=== PATIENT | female | born 1945 | race Caucasian/White ===

== ENCOUNTER 2021-01-09 15:59 | Emergency (ER) | payer MEDICARE ==
[~2021-01-09] VITALS: Ht 154.9 cm; Wt 79.8 kg
[2021-01-09] MEDS ORDERED: CYMBALTA30 MG PO (16:27)
[2021-01-09] MEDS ORDERED: NP THYROID90 MG PO (16:28)
[2021-01-09] MEDS ORDERED: LIPITOR20 MG PO (16:29)
[2021-01-09] MEDS ORDERED: KELP150 MC1 PO (16:30)
[2021-01-09] MEDS ORDERED: MELATONIN1 MG PO (16:31)
[2021-01-09] MEDS ORDERED: PRAMIPEXOLE0.125 MG PO (16:52)
[2021-01-09] MEDS ORDERED: ASPIRIN EC325 MG PO (16:53)
--- NOTE | 2021-01-10 15:09 | EKG ---
[facility] [address] [facility] [place], [place] [address] Signed Sinus bradycardia Left bundle branch block Abnormal ECG No previous ECGs available Confirmed by MANNY ARAUJO DO ([id number]) on 01/10/2021 3:08:43 PM Electronically Signed By: MANNY ARAUJO DO 01/10/21 1509 PATIENT NAME: KATHY SMITH Electrocardiogram DATE OF : 45 PHYSICIAN: MANNY ARAUJO DO REPORT #: [id number] REPORT IS CONFIDENTIAL AND NOT TO BE RELEASED WITHOUT AUTHORIZATION
== END 2021-01-09 20:41 | disposition home or self-care (01) ==
LOC: ED 15:59
DX: E87.1 Hypo-osmolality and hyponatremia (principal); R51.9 Headache, unspecified; R53.1 Weakness; R11.0 Nausea; R41.89 Other symptoms and signs involving cognitive functions and awareness; Z20.822 Contact with and (suspected) exposure to COVID-19; E11.9 Type 2 diabetes mellitus without complications; E03.9 Hypothyroidism, unspecified; Z79.899 Other long term (current) drug therapy; Z79.82 Long term (current) use of aspirin
CPT/HCPCS: 71045; 80053; 81001; 83690; 83735; 84443; 84484; 85007; 85025; 93005; 93010; 99285-25; C9803; J7121; U0003

== ENCOUNTER 2022-03-21 10:45 | Day surgery (SDC) | payer MEDICARE ==
[~2022-03-21] VITALS: Ht 154.9 cm; Wt 77.3 kg
[~2022-03-21 10:45] MED LIST: ASPIRIN EC325 MG PO; B12 ACTIVE1000 MCG PO; CARBIDOPA-LEVO1 EAC1 PO; CELEBREX100 MG PO; CYMBALTA30 MG PO; ELDERBERRY IMM1 EACH PO; KELP150 MC1 PO; LIPITOR20 MG PO; MAGNESIUM200 MG PO; MELATONIN1 MG PO; NOVAFERRUM125 MG/51 PO; NP THYROID90 MG PO; OSTERA TABLET1 EACH PO; PRAMIPEXOLE0.125 MG PO; VIT C-ROSE HIP500 MG PO; [UNRECOGNIZED DRUG - OTHER] PO
[2022-03-21] MEDS ORDERED: PROAIR HFA8.5 GM INH (11:03)
--- NOTE | 2022-03-21 12:19 | NUR ---
03/21/22 1219 Rakel Freed 1209 PATIENT SLEEPING. AWAKENS WITH VERBAL STIMULI. RESP EVEN AND UNLABORED, NC AT 4 LITERS. DENIES PAIN OR NAUSEA. 1215 PATIENT REPOSITIONS SELF TO BACK. DENIES PAIN OR NAUSEA. RESP EVEN AND UNLABORED, OXYGEN OFF.
--- NOTE | 2022-04-04 09:52 | PATH ---
[facility] [address] [place], [place] [address] Signed THIS IS AN ADDENDUM REPORT SPECIMEN(S): A BONE MARROW - CORE SPECIMEN(S): B BONE MARROW - ASPIRATION CLINICAL HISTORY: 76-year-old woman with pancytopenia. See attached. D72.819 (decreased white blood cell count, unspecified) DIAGNOSIS SUMMARY: Peripheral blood - Pancytopenia with no abnormal RBC or WBC cells. - No circulating blasts are identified. Bone marrow biopsy and aspiration: - Mildly hypercellular marrow, 40%, with 1% blasts. - Trilineage hematopoiesis with erythroid hyperplasia with no significant dyspoiesis. - No malignancy identified by morphology. - 0.1% kappa-restricted B-cells are identified by flow cytometry. - See Diagnostic Comment. DIAGNOSTIC COMMENT: The marrow is mildly hypercellular with mild erythroid hyperplasia with no significant dyspoiesis. Myelodysplasia is not favored, but correlation with pending chromosome analysis and a FISH panel for MDS is required to exclude an occult myelodysplasia. Other possibilities would include viral infection, drug effect, autoimmune conditions, or a low-grade hemolytic anemia. Exclusion of PNH or splenomegaly may be helpful. If clinically desired, the cell block could be sent for NGS-myelodysplasia analysis. Please contact pathology if this study is desired. By flow cytometry, a small population of kappa-restricted B-cells is detected (0.1% of all gated cells). No overt lymphoproliferative disorder is identified by morphology or immunohistochemistry analysis. A monoclonal B-cell lymphocytosis is favored. JLP:C2NR HISTORICAL SUMMARY: 76-year-old female with no prior hematology history in the [facility] data base. She presents with unexplained pancytopenia. PATIENT NAME: KATHY SMITH PATHOLOGY DATE OF : 45 REPORT #: [id number] PHYSICIAN: CORRY PATHOLOGY PCP: KARLA CHILEL MD REPORT IS CONFIDENTIAL AND NOT TO BE RELEASED WITHOUT AUTHORIZATION [facility] [address] [place], [place] [address] Signed PERIPHERAL BLOOD: HEMOGRAM (03/21/2022): WBC 1.4 K/ul, RBC 3.67 M/ul, HGB 11.7 g/dl, HCT 34.5%, MCV 94.0 fl, MCH 32.0 pg, MCHC 34.1 g/dl, RDW 13.9%, PLT 128 K/ul. AUTOMATED DIFFERENTIAL COUNT: Neutrophils 51.3%, lymphocytes 32.3%, monocytes 13.5%, eosinophils 2.0%, basophils 0.9%. The red blood cells are normocytic and normochromic with minimal anisopoikilocytosis. The neutrophils are unremarkable. Lymphocytes are composed of small mature appearing forms. Platelets are mildly decreased in number with no platelet clumping or RBC microangiopathic effect identified. No blasts are identified. BONE MARROW: ASPIRATE SMEARS/TOUCH IMPRINT: The aspirate smears are adequate for evaluation. Erythroid precursors are increased in number but show adequate maturation with essentially normal morphology. The myeloid precursors show full maturation with unremarkable morphology. There is no increase in blasts. Megakaryocytes are identified with a normal morphology. BONE MARROW DIFFERENTIAL COUNT (300 cells): Blasts 1%, promyelocytes 1%, myelocytes 5%, metamyelocytes/bands/segs 24%, erythroid precursors 51%, lymphocytes 13%, monocytes 3%, eosinophils 1%, plasma cells 1%. M:E ratio: Inverted at 0.6:1 BONE MARROW CORE BIOPSY/ASPIRATE CLOT/CELL BLOCK: The aspirate clot section and the core biopsy are adequate for evaluation. The core biopsy demonstrates unremarkable trabecular bone. The cellularity is mildly increased for age, estimated at 40%. The erythroid precursors are within normal limits with essentially unremarkable maturation. The myeloid precursors are unremarkable with no significant dyspoiesis. Blasts are not increased. Megakaryocytes appear normal in number and in morphology. No granulomas, atypical lymphoid aggregates or foreign malignant cells are detected. SPECIAL STAINS (with adequate controls): - iron (aspirate smear): Increased marrow iron stores by Prussian Blue stain. No ring sideroblasts are identified. - iron (cell block): Appears normal by Prussian Blue stain. - PAS (block A1): Normal number and morphology of megakaryocytes. IMMUNOHISTOCHEMISTRY STAINS (performed on block A1 with adequate controls). - PAX 5: 1%, no atypical aggregates. - CD3: 5%, no atypical aggregates - CD71: 40% - CD34: 1% PATIENT NAME: KATHY SMITH PATHOLOGY DATE OF : 45 REPORT #: [id number] PHYSICIAN: CORRY PATHOLOGY PCP: KARLA CHILEL MD REPORT IS CONFIDENTIAL AND NOT TO BE RELEASED WITHOUT AUTHORIZATION [facility] [address] [place] [address] Signed FLOW CYTOMETRY: Bone marrow, flow cytometry: - Minute population (0.1% of all gated cells) of kappa restricted B-cells. - No diagnostic abnormalities are identified. - See Comment. COMMENT: 0.1% of all analyzed cells are kappa restricted B-cells. These B-cells are positive for CD19, CD20 (dim expression), CD5, and CD200. There is no significant expression of CD10 or CD23. This may represent a monoclonal B-cell lymphocytosis. Correlation with bone marrow findings is required. The T-cells are unremarkable with no loss of morel-T markers. The blasts are not increased. FLOW CYTOMETRY ANALYSIS: FLOW DIFFERENTIAL (% Total CD45 vs. SSC gating): Myeloid 66%; Lymphoid 9%; Monocyte 3%; Dim CD45/Blast: 1.8%. Cell Count: 3.8 x 10*3/uL. POPULATION ANALYSIS: BLASTS: Analysis of the dim CD45 gate demonstrates 1.8% myeloblasts by CD34/CD117 and 1.0% hematogones. LYMPHOID CELLS: The lymphocyte gate comprises 9% of total events and includes 80% T-cells with a CD4:CD8 ratio of 1.0:1 and normal morel T-cell antigen expression. 4% of lymphocytes are B-cells. A minute kappa-restricted B-cell subset is detected (1% of lymphocytes, 0.1% of total events) expressing CD45 MOD, CD19 MOD, CD20 DIM, CD5 (variable), CD38 DIM (partial, 40% of CD19+CD5+ B-cells), and KAPPA (variable) while negative for CD10 and CD23. Due to the absence of CD23 expression, select additional antibodies are run to further characterize the Bcells. Expression of CD200 DIM is noted. The remainders are NK-cells. MYELOID CELLS: The myeloid population comprises 66% of the total events. No aberrant immunophenotypic expression is detected. MONOCYTES: The monocyte population comprises 3% of the total events. Monocytes are not increased. No aberrant immunophenotypic expression is detected. PLASMA CELLS: 0.9% plasma cells are detected in the screening gate neg-dimCD45/CD38. Plasma cells are CD45 dim and positive for CD19. Initial Antibodies Used: KAPPA, LAMBDA, CD20, CD10, CD19, CD23, CD38, CD16, CD56, CD8, CD5, CD2, CD4, CD7, CD3, CD14, CD33, CD13, HLADR, CD34, CD117, CD15, CD45. Additional Antibodies (necessary for further classification of B-lymphocytes): CD200 PATIENT NAME: KATHY SMITH PATHOLOGY DATE OF : 45 REPORT #: [id number] PHYSICIAN: CORRY DEAN PCP: KARLA CHILEL MD REPORT IS CONFIDENTIAL AND NOT TO BE RELEASED WITHOUT AUTHORIZATION [facility] [address] [place], [place] [address] Signed Total Antibodies Used: 24 JNB FINAL DIAGNOSIS PERFORMED BY: Porter Alfaro MD, Mar 23 2022 1:57PM CYTOGENETICS: Chromosome analysis is pending, and the result will be reported in an addendum. FISH ANALYSIS: A FISH panel for MDS is pending, and the result will be reported in an addendum. GROSS DESCRIPTION: Two specimens are received in two containers. A. The specimen, labeled and designated "Kurt, bone marrow core biopsy," is received in formalin and consists of one samuel, cylindrical core of bone that is 1.6 cm long and 0.2 cm in diameter. After decalcification in Immunocal, the specimen is entirely submitted in (A1). B. The specimen, labeled and designated "Kurt, bone marrow clot," is received in formalin and consists of a 2.2 x 1.5 x 0.3 cm aggregate of red-brown clot material. Entirely submitted in (B1). JS (under the direct supervision of a pathologist) The Gross Description was prepared using a voice recognition system. The report was reviewed for accuracy; however, sound-alike word errors, addition and/or deletions may occur. If there is any question about this report, please contact Client Services. ADDITIONAL NOTES: Immunohistochemical and/or in situ hybridization studies were performed on this case with the appropriate positive controls that react as expected. This test was developed and its performance characteristics determined by [facility]. It has not been cleared or approved by the U.S. Food and Drug Administration. The FDA has determined that such clearance or approval is not necessary. This test is used for clinical purposes. It should not be regarded as investigational or for research. [facility] is certified under the Clinical Laboratory Improvement Amendments of 1988 (CLIA) as qualified to perform high complexity clinical laboratory testing. This assay has not been validated for specimens that have been decalcified. In this case, certain antibodies were performed by both immunohistochemistry and flow cytometry analysis because flow cytometry analysis did not fully PATIENT NAME: KATHY SMITH PATHOLOGY DATE OF : 45 REPORT #: [id number] PHYSICIAN: CORRY PATHOLOGY PCP: KARLA CHILEL MD REPORT IS CONFIDENTIAL AND NOT TO BE RELEASED WITHOUT AUTHORIZATION [facility] [address] [facility] [place], [place] [address] Signed explain all the light microscopic findings. Immunohistochemistry aided in the analysis. Both methods are deemed medically necessary in this case. This test was developed and its performance characteristics determined by [facility]. It has not been cleared or approved by the US Food and Drug Administration. The FDA does not require this test to go through premarket FDA review. This test is used for clinical purposes. It should not be regarded as investigational or for research. This laboratory is certified under the Clinical Laboratory Improvement Amendments (CLIA) as qualified to perform high complexity clinical laboratory testing. PERFORMING LABORATORY: The technical preparation was performed by [facility], [address] [place] [address] (CLIA#: [id number]). Professional interpretation was performed at [facility], [address] [place] [address]. Technical component was performed by [facility], [address] [place] [address] (CLIA# [id number]). Immunohistochemistry was performed by [facility], [address] [place] [address] (CLIA#: [id number]). Professional interpretation was performed by [facility] - [facility], [address] [place] [id number] (CLIA#: [id number]). IMAGES: A: [id number] A: [id number] SPECIMEN SOURCE: A. FISH Analysis, MDS FISH, BM ASP CLINICAL HISTORY: 76-year-old woman with pancytopenia. D72.819 (decreased white blood cell count, unspecified) FISH (fluorescence in situ hybridization) RESULT: Not Detected INTERPRETATION: 5q deletion/monosomy 5: Not detected. 7q deletion/monosomy 7: Not detected. Trisomy 8: Not detected. 20q deletion: Not detected. PATIENT NAME: KATHY SMITH PATHOLOGY DATE OF : 45 REPORT #: [id number] PHYSICIAN: CORRY PATHOLOGY PCP: KARLA CHILEL MD REPORT IS CONFIDENTIAL AND NOT TO BE RELEASED WITHOUT AUTHORIZATION [facility] [address] [facility] [place] [address] Signed KMT2A (MLL) rearrangement: Not detected. Fluorescence in situ hybridization (FISH) analysis was performed using a specific set of probes for myelodysplastic syndrome. Counts for all probe signals were within the normal reference range. This finding represents a NORMAL result. FISH should be interpreted within the context of a full cytogenetic analysis and hematologic evaluation. ISCN: Probe Set Detail: EGR1/B5O986: nuc carson 5p15.31(X0P502w1), 5q31(EGR1x2)[200] L7B560/CEP7: nuc carson 7q31(B7L761x3),7q11.2q11.21(CEP7x2)[200] CEP8: nuc carson 8q11.1q11.21(CEP8x2)[200] L82H512: nuc carson 20q12(F52Z432x1)[200] KMT2A (MLL): nuc carson 11q23(5'KMT2A,3'KMT2A)x2(5'KMT2A con 3'BBD0Vb3)[200] References: Taylor Ellsworth (2013) Hematology Am Soc Hematol Educ Program 2013:504-10. PMID [id number] Vikki Kelley and Lela Carrizales (2011) Hematology 16(3):131-8. PMID: [id number] FISH Analysis Summary: Nuclei Scored: 200 Scoring Method: Manual; CPT Code 50407 Number of Probe units: 4 Multiplex Cells analyzed: Interphase Probe sets: Chrom 8: KOREY 8, Chrom 20: K98I783, Chrom 5: EGR1, Chrom 5: W6Q595, Chrom 7: CEN7, Chrom 7: S7O3387, Chrom 11: KMT2A (MLL) 3', Chrom 11: KMT2A (MLL) 5 ADDITIONAL NOTES: This test was developed and its performance characteristics determined by [facility], [employer]. It has not been cleared or approved by the US Food and Drug Administration. The [employer] DNA probe vendor for this study was [employer]. PERFORMING LABORATORY: The technical component of the FISH testing [place] [address] (CLIA#: [id number]). Professional [facility] [place] [phone] (CLIA#: [id number]). FINAL DIAGNOSIS PERFORMED BY: Joyce Atkins MD, Pathologist Mar 30 2022 1:44PM ADDENDUM NOTE The FISH panel for MDS is normal. Chromosome analysis demonstrated 2 of 18 PATIENT NAME: KATHY SMITH PATHOLOGY DATE OF : 45 REPORT #: [id number] PHYSICIAN: CORRY DEAN PCP: KARLA CHILEL MD REPORT IS CONFIDENTIAL AND NOT TO BE RELEASED WITHOUT AUTHORIZATION [address] [address] Signed analyzed cells with trisomy 15. Trisomy 15 has been observed in low-grade myelodysplastic syndrome, usually refractory anemia. As a marker for myelodysplasia, trisomy 15 is associated with minimal morphologic evidence for myelodysplasia, where subtle dyserythropoietic changes may be the only finding. However, the association of isolated trisomy 15 with hematologic disease is not definitive. Testing for NGS MDS panel ([employer] CMML/MDS, [facility] lab) is suggested for further evaluation of low grade MDS. This can be done from block B of this bone marrow specimen. Please contact pathology if this test is desired. A diagnostic alert is initiated by Dr Dominic ALMAZAN 04/04/2022 REASON FOR ADDENDUM: To add results of additional testing. Bone marrow, chromosome analysis: Karyotype: 47,XX,+15[2]/46,XX[18] Interpretation: ABNORMAL FEMALE KARYOTYPE Cytogenetic analysis shows an abnormal female karyotype. Two cells show a trisomy 15 and eighteen cells show a normal karyotype. Trisomy 15 has been observed in low-grade myelodysplastic syndrome, usually refractory anemia. As a marker for myelodysplasia, trisomy 15 is associated with minimal morphologic evidence for myelodysplasia, where subtle dyserythropoietic changes may be the only finding. However, the association of isolated trisomy 15 with hematologic disease is not definitive. Recommendation: These results should be interpreted in conjunction with clinical and pathologic findings. Monitoring by cytogenetic and molecular studies is recommended. Comments: Standard cytogenetic analysis may not detect subtle submicroscopic rearrangements and may not include metaphases from abnormal cell populations with low mitotic rates or present in low levels. Test Detail: Metaphases Counted: 20 Metaphases Analyzed: 20 Metaphases Karyotyped: 2 Culture Type: 24EB, 48EB PATIENT NAME: KURTKATHY PEACOCK PATHOLOGY DATE OF : 45 REPORT #: [id number] PHYSICIAN: CORRY PATHOLOGY PCP: KARLA CHILEL MD REPORT IS CONFIDENTIAL AND NOT TO BE RELEASED WITHOUT AUTHORIZATION [facility] [address] [place], [place] [address] Signed Banding Technique: GPG Banding Resolution: 400 CPT Codes: 56651, 11884*, 85970 *Professional interpretation service generally billed directly to carriers by [facility]. The Accessioning Component, Technical Component Processing and Professional Component of this test was completed at [facility] [address] / [address] / [phone] / CLIA #[id number] / Park Interpretive Ranger(s): Paul Vidal M.D. The Technical Component Analysis of this test was completed at [facility] [address], [facility] [address], [place] / [address] / [phone] / CLIA #[id number] / Park Interpretive Ranger(s): Marti Bourgeois M.D. Accession / CaseNo: [id number] / [id number] The performance characteristics of this test have been determined by the performing laboratory. This test has not been approved by the FDA. The FDA has determined such clearance or approval is not necessary. This laboratory is CLIA certified to perform high complexity clinical testing. Images that may be included within this report are senior patient account representative of the patient but not all testing in its entirety and should not be used to render a result. The CPT codes provided with our test descriptions are based on AMA guidelines and are for informational purposes only. Correct CPT coding is the sole responsibility of the billing republican. Please direct any questions regarding coding to the payer being billed. Diagnostician: Porter Alfaro MD Pathologist Electronically Signed 04/04/2022 Copies: ~ PATIENT NAME: SHLOMO SMITHVIKKI GAVIRIA PATHOLOGY DATE OF : 45 REPORT #: [id number] PHYSICIAN: CORRY PATHOLOGY PCP: KARLA CHILEL MD REPORT IS CONFIDENTIAL AND NOT TO BE RELEASED WITHOUT AUTHORIZATION
== END 2022-03-21 13:15 | disposition home or self-care (01) ==
LOC: OPS 10:45 → DS 10:45 → OPS 12:00
PROVIDERS: ATTEND Specialist
PROC: 079T3ZX Drainage of Bone Marrow, Percutaneous Approach, Diagnostic (ICD-10-PCS; principal; 2022-03-21 12:00)
DX: D61.818 Other pancytopenia (principal); I10 Essential (primary) hypertension; K21.9 Gastro-esophageal reflux disease without esophagitis; E03.9 Hypothyroidism, unspecified; E11.9 Type 2 diabetes mellitus without complications; M79.7 Fibromyalgia; I69.359 Hemiplegia and hemiparesis following cerebral infarction affecting unspecified side; G25.81 Restless legs syndrome; Z79.899 Other long term (current) drug therapy
CPT/HCPCS: 01112; 36415; 80053; 80074; 83615; 85025; 86038; 86431; J2704; J7121

== ENCOUNTER 2022-08-17 11:09 | Emergency (ER) | payer MEDICARE ==
[~2022-08-17] VITALS: Ht 154.9 cm; Wt 77.1 kg
[~2022-08-17 11:09] MED LIST changes: +PROAIR HFA8.5 GM INH
--- OUTSIDE RECORDS SUMMARY | 2022-08-17 11:14 | XMS ---
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 Kaylee has no Care Guidelines for this patient. Kae VISIT COUNT (12 MO.) 2 MARY Velazquez TOTAL 2 NOTE: Visits indicate total known visits. 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 Diabetes DIAGNOSES: - Distal Femur Fracture. Diabetes [email or web address]
[2022-08-17] MEDS ORDERED: CELEBREX100 MG PO (12:41)
[2022-08-17 12:49] VITALS: BP 126/64
== END 2022-08-17 12:51 | disposition home or self-care (01) ==
LOC: ED 11:09
DX: S80.12XA Contusion of left lower leg, initial encounter (principal); E11.9 Type 2 diabetes mellitus without complications; E03.9 Hypothyroidism, unspecified; X58.XXXA Exposure to other specified factors, initial encounter; Z96.653 Presence of artificial knee joint, bilateral; Z79.899 Other long term (current) drug therapy; Z86.73 Personal history of transient ischemic attack (TIA), and cerebral infarction without residual deficits; Z79.82 Long term (current) use of aspirin
CPT/HCPCS: 36415; 73560; 85025; 85060; 93971; 99284-25

== ENCOUNTER 2024-04-26 02:55 | Inpatient (IN) | payer MEDICARE ==
[2024-04-26] VITALS (31 sets, daily range): BP systolic 84–129; BP diastolic 56–109
[~2024-04-26] VITALS: Ht 154.9 cm; Wt 76.3 kg
[~2024-04-26 02:55] MED LIST changes: +COQMAX UBIQUIN100 MG PO; -ELDERBERRY IMM1 EACH PO; +ELDERBERRY350 MG PO; -MELATONIN1 MG PO; +MELATONIN5 M2 PO; +MULTI VITAMIN1 EACH PO; +PRILOSEC OTC20 MG PO; +ZINC50 MG PO
[2024-04-26 03:17] LABS: BASOPHILS 0.8 % (0-2); EOSINOPHILS 1.2 % (0-6); HEMATOCRIT 38.9 % (35.0-50.0); HEMOGLOBIN 13.2 g/dL (12.0-18.0); LYMPHOCYTES 16.9 % (24-44); MCH 32.3 (27-36); MONOCYTES 11.7 % (0-12); NEUTROPHILS 69.4 % (39-80); PLATELET COUNT 167 K/uL (140-440); RDW 14.3 (10.5-15.0)
[2024-04-26 03:28] LABS: INR 1.08 (0.80-1.30); PROTIME 13.9 Sec (11.2-14.2)
[2024-04-26] MEDS ORDERED: ondansetron HCL 4 MG/2 ML VIAL IV ONE (03:30)
[2024-04-26 03:33] LABS: ALBUMIN 4.3 g/dL (3.4-5.0); ALBUMIN/GLOBULIN RATIO 1.26 (1.1-2.4); ANION GAP 11.9 (7-21); BILIRUBIN, TOTAL 1.6 ng/dL (0.2-1.0); BUN/CREATININE RATIO 36.66 (6.0-28.6); CALCIUM 9.3 mg/dL (8.5-10.1); CREATININE, SERUM 0.6 mg/dL (0.55-1.02); POTASSIUM 3.9 mmol/L (3.5-5.1); PROTEIN, TOTAL 7.7 g/dL (6.4-8.2)
[2024-04-26 03:41] LABS: LACTIC ACID, BLOOD 1.5 mmol/L (0.4-2.0)
[2024-04-26] MEDS ORDERED: dilTIAZem HCL 25 MG/5 ML VIAL IV ONE ×3 (03:45→08:15)
[2024-04-26 04:00] LABS: CORONAVIRUS COVID-19 AG NEGATIVE (NEGATIVE); INFLUENZA A AG NEGATIVE (NEGATIVE); INFLUENZA B AG NEGATIVE (NEGATIVE)
[2024-04-26] MEDS ORDERED: CEFTRIAXONE/SODIUM CHLORIDE 1 GM/100 ML PIGGYBACK IV ONE (04:15)
[2024-04-26] MEDS ORDERED: AZITHROMYCIN 250 MG TAB PO ONE (04:15)
[2024-04-26] MEDS ORDERED: FUROSEMIDE 40 MG/4 ML VIAL IV ONE (04:30)
[2024-04-26 05:41] LABS: BILIRUBIN, URINE NEGATIVE (negative); BLOOD/HGB, URINE NEGATIVE (Negative); KETONE, URINE NEGATIVE (Negative); LEUK ESTERASE, URINE NEGATIVE (negative); NITRITE, URINE POSITIVE (negative)
[2024-04-26 06:07] LABS: CRYSTALS, URINE NONE SEEN (0-1+); EPITHELIAL CELLS, URINE SQUAMOUS 1+ /lpf (0-1+)
[2024-04-26 06:08] LABS: BACTERIA, URINE RARE /hpf (negative); CASTS, URINE NONE SEEN \\lpf; COLLECTION TYPE, URINE CLEAN CATCH; REFLEX CULTURE, URINE No (No)
[2024-04-26] MEDS ORDERED: ondansetron HCL 4 MG/2 ML VIAL IV PRN ×2 (07:15→09:30)
[2024-04-26] MEDS ORDERED: ACETAMINOPHEN 325 MG TAB PO PRN ×2 (07:15→09:30)
[2024-04-26] MEDS ORDERED: ALBUTEROL SULFATE 0.083% 3 ML VIAL INH PRN (07:45)
[2024-04-26] MEDS ORDERED: PROCHLORPERAZINE EDISYLATE 10 MG/2 ML VIAL IV PRN (08:30)
[2024-04-26] MEDS ORDERED: DILTIAZEM HCl/D5W 125 ML IV SCH (08:30)
[2024-04-26] MEDS ORDERED: NYSTATIN CREAM 30 GM TUBE TOP SCH (09:00)
[2024-04-26] MEDS ORDERED: PANTOPRAZOLE SODIUM 40 MG TABEC PO SCH (09:00)
[2024-04-26] MEDS ORDERED: MICONAZOLE NITRATE 1 EA BTL TOP SCH (09:00)
[2024-04-26] MEDS ORDERED: GLUCAGON,HUMAN RECOMBINANT 1 MG/ML VIAL SUB-Q PRN (09:30)
[2024-04-26] MEDS ORDERED: DEXTROSE 50% 50 ML SYR IV PRN ×2 (09:30)
[2024-04-26] MEDS ORDERED: IBLOOD GLUCOSE TEST STRIP 1 EA TEST XX PRN (09:30)
[2024-04-26] MEDS ORDERED: DEXTROSE 5% 1,000 ML IV PRN (09:30)
[2024-04-26 10:25] LABS: ANION GAP 14.1 (7-21); CALCIUM 9.2 mg/dL (8.5-10.1); CREATININE, SERUM 0.7 mg/dL (0.55-1.02); POTASSIUM 4.1 mmol/L (3.5-5.1)
[2024-04-26] MEDS ORDERED: CELECOXIB100 MG PO (11:17)
[2024-04-26] MEDS ORDERED: INSULIN LISPRO 100 UNIT/ML ML SUB-Q SCH (12:00)
[2024-04-26] MEDS ORDERED: IBLOOD GLUCOSE TEST STRIP 1 EA TEST VI SCH (12:00)
[2024-04-26] MEDS ORDERED: PHARMACY RENAL DOSE ADJUSTMENT 1 DOSE MISC PO SCH (12:00)
[2024-04-26] MEDS ORDERED: VITAMIN D350 MC5 PO (12:47)
[2024-04-26] MEDS ORDERED: VITAMIN B121000 MCG PO (12:48)
[2024-04-26] MEDS ORDERED: CILOSTAZOL100 MG PO (12:48)
[2024-04-26] MEDS ORDERED: FUROSEMIDE 40 MG/4 ML VIAL IV SCH (13:00)
[2024-04-26 15:10] LABS: BUN/CREATININE RATIO 31.81 (6.0-28.6); CREATININE, SERUM 0.66 mg/dL (0.55-1.02)
[2024-04-26 18:33] LABS: ANION GAP 7.9 (7-21); BUN/CREATININE RATIO 27.77 (6.0-28.6); CALCIUM 8.8 mg/dL (8.5-10.1); CREATININE, SERUM 0.72 mg/dL (0.55-1.02); POTASSIUM 3.9 mmol/L (3.5-5.1)
[2024-04-26] MEDS ORDERED: cilostazoL 100 MG TAB PO SCH (21:00)
[2024-04-26] MEDS ORDERED: APIXABAN 5 MG TAB PO SCH (21:00)
[2024-04-26] MEDS ORDERED: LEVODOPA/CARBIDOPA 25/100 1 EA TAB PO SCH (21:00)
[2024-04-26 22:17] LABS: ANION GAP 4.9 (7-21); BUN/CREATININE RATIO 29.57 (6.0-28.6); CALCIUM 8.8 mg/dL (8.5-10.1); CREATININE, SERUM 0.71 mg/dL (0.55-1.02); POTASSIUM 3.9 mmol/L (3.5-5.1)
[2024-04-27] VITALS (30 sets, daily range): BP systolic 83–152; BP diastolic 55–127
[2024-04-27 05:50] LABS: HEMATOCRIT 32.4 % (35.0-50.0); HEMOGLOBIN 11.1 g/dL (12.0-18.0); MCH 32.5 (27-36); MCHC 34.4 g/dl (30-36); MCV 94.5 fl (81-99); MONOCYTES 13.7 % (0-12); NEUTROPHILS 50.3 % (39-80); PLATELET COUNT 132 K/uL (140-440); RBC 3.42 M/ul (4.3-5.7); RDW 14.3 (10.5-15.0)
[2024-04-27 06:11] LABS: ALBUMIN 3.3 g/dL (3.4-5.0); ALBUMIN/GLOBULIN RATIO 1.27 (1.1-2.4); BILIRUBIN, TOTAL 0.8 ng/dL (0.2-1.0); BUN/CREATININE RATIO 30.3 (6.0-28.6); CALCIUM 8.9 mg/dL (8.5-10.1); CREATININE, SERUM 0.66 mg/dL (0.55-1.02); MAGNESIUM 1.6 mg/dL (1.8-2.4); PHOSPHORUS, INORGANIC 3.8 mg/dL (2.5-4.9); PROTEIN, TOTAL 5.9 g/dL (6.4-8.2)
[2024-04-27] MEDS ORDERED: THYROID PORK 30 MG PO SCH (09:00)
[2024-04-27] MEDS ORDERED: MAGNESIUM SULFATE 2 GM/50 ML BAG IV SCH (09:00)
[2024-04-27] MEDS ORDERED: CELECOXIB 100 MG CAP PO SCH (11:05)
[2024-04-27] MEDS ORDERED: dilTIAZem HCL 180 MG CAPCR PO SCH (11:06)
--- NOTE | 2024-04-27 23:00 | EKG ---
[facility] [address] [facility] [place] [address] Signed Atrial fibrillation with rapid ventricular response Left bundle branch block Abnormal ECG When compared with ECG of 30-NOV-2022 06:08, Atrial fibrillation has replaced Sinus rhythm Vent. rate has increased BY 69 BPM Confirmed by Kerry Jack MD () on 04/27/2024 11:00:24 PM Electronically Signed By: KERRY JACK MD 04/27/24 2300 PATIENT NAME: KATHY SMITH Electrocardiogram DATE OF : 45 PHYSICIAN: KERRY JACK MD REPORT #: [id number] REPORT IS CONFIDENTIAL AND NOT TO BE RELEASED WITHOUT AUTHORIZATION
[2024-04-28] VITALS (15 sets, daily range): BP systolic 92–140; BP diastolic 53–113
[2024-04-28 05:42] LABS: BASOPHILS 0.7 % (0-2); EOSINOPHILS 3.3 % (0-6); HEMATOCRIT 31.9 % (35.0-50.0); LYMPHOCYTES 22.8 % (24-44); MCH 32.3 (27-36); MCHC 34.5 g/dl (30-36); MCV 93.6 fl (81-99); MONOCYTES 14.3 % (0-12); NEUTROPHILS 58.9 % (39-80); PLATELET COUNT 149 K/uL (140-440); RBC 3.41 M/ul (4.3-5.7); RDW 13.9 (10.5-15.0)
[2024-04-28 05:59] LABS: ALBUMIN 3.4 g/dL (3.4-5.0); ALBUMIN/GLOBULIN RATIO 1.36 (1.1-2.4); ANION GAP 5.7 (7-21); BILIRUBIN, TOTAL 0.8 ng/dL (0.2-1.0); BUN/CREATININE RATIO 28.12 (6.0-28.6); CALCIUM 8.9 mg/dL (8.5-10.1); CREATININE, SERUM 0.64 mg/dL (0.55-1.02); MAGNESIUM 1.9 mg/dL (1.8-2.4); POTASSIUM 3.7 mmol/L (3.5-5.1); PROTEIN, TOTAL 5.9 g/dL (6.4-8.2)
[2024-04-28] MEDS ORDERED: POTASSIUM CHLORIDE 10 MEQ TABCR PO ONE (08:30)
[2024-04-28] MEDS ORDERED: MAGNESIUM CHLORIDE 64 MG TABCR PO ONE (08:30)
[2024-04-28] MEDS ORDERED: dilTIAZem HCL 120 MG CAPCR PO ONE (09:15)
[2024-04-28] MEDS ORDERED: SENNOSIDES/DOCUSATE 1 EA TAB PO SCH (11:34)
[2024-04-28] MEDS ORDERED: POLYETHYLENE GLYCOL 3350 1 PACKET PO SCH (15:15)
[2024-04-28] MEDS ORDERED: DULOXETINE HCL 30 MG CAP PO SCH (15:15)
[2024-04-28] MEDS ORDERED: METOPROLOL TARTRATE 25 MG TAB PO SCH (16:15)
[2024-04-29] VITALS (11 sets, daily range): BP systolic 93–139; BP diastolic 56–94
[2024-04-29 05:40] LABS: BASOPHILS 1.6 % (0-2); HEMATOCRIT 36.1 % (35.0-50.0); HEMOGLOBIN 12.5 g/dL (12.0-18.0); LYMPHOCYTES 19.1 % (24-44); MCH 32.1 (27-36); MCHC 34.6 g/dl (30-36); MCV 92.8 fl (81-99); MONOCYTES 13.7 % (0-12); NEUTROPHILS 62.6 % (39-80); PLATELET COUNT 184 K/uL (140-440); RBC 3.89 M/ul (4.3-5.7); RDW 14.1 (10.5-15.0)
[2024-04-29 05:56] LABS: ALBUMIN/GLOBULIN RATIO 1.43 (1.1-2.4); ANION GAP 9.6 (7-21); BILIRUBIN, TOTAL 1.3 ng/dL (0.2-1.0); BUN/CREATININE RATIO 26.08 (6.0-28.6); CALCIUM 9.4 mg/dL (8.5-10.1); CREATININE, SERUM 0.69 mg/dL (0.55-1.02); POTASSIUM 3.6 mmol/L (3.5-5.1); PROTEIN, TOTAL 6.8 g/dL (6.4-8.2)
[2024-04-29] MEDS ORDERED: dilTIAZem HCL 240 MG CAPCR PO SCH (09:00)
[2024-04-29] MEDS ORDERED: MAGNESIUM CITRATE 300 ML BTL PO ONE (11:00)
[2024-04-29] MEDS ORDERED: POTASSIUM CHLORIDE 10 MEQ TABCR PO ONE (19:30)
[2024-04-30 00:57] VITALS: BP 110/70
[2024-04-30 01:40] VITALS: BP 120/88
[2024-04-30 05:36] LABS: BASOPHILS 0.9 % (0-2); EOSINOPHILS 3.8 % (0-6); HEMATOCRIT 32.3 % (35.0-50.0); HEMOGLOBIN 11.4 g/dL (12.0-18.0); LYMPHOCYTES 22.7 % (24-44); MCH 32.5 (27-36); MCHC 35.1 g/dl (30-36); MCV 92.7 fl (81-99); MONOCYTES 13.1 % (0-12); NEUTROPHILS 59.5 % (39-80); PLATELET COUNT 171 K/uL (140-440); RBC 3.49 M/ul (4.3-5.7); RDW 13.9 (10.5-15.0)
[2024-04-30 05:39] VITALS: BP 111/57
[2024-04-30 05:42] LABS: ANION GAP 12.7 (7-21); BUN/CREATININE RATIO 23.88 (6.0-28.6); CREATININE, SERUM 0.67 mg/dL (0.55-1.02); MAGNESIUM 1.8 mg/dL (1.8-2.4); POTASSIUM 3.7 mmol/L (3.5-5.1)
[2024-04-30 05:43] VITALS: BP 111/57
[2024-04-30 09:44] VITALS: BP 143/83
[2024-04-30] MEDS ORDERED: ELIQUIS5 MG PO (10:52)
[2024-04-30] MEDS ORDERED: SOAANZ40 MG PO (10:58)
[2024-04-30] MEDS ORDERED: POTASSIUM CHLO20 ME1 PO (10:59)
[2024-04-30] MEDS ORDERED: PRADAXA150 MG PO (11:24)
[2024-04-30] MEDS ORDERED: METOPROLOL TART25 MG PO (11:32)
[2024-04-30] MEDS ORDERED: CARDIZEM CD240 MG PO (11:38)
== END 2024-04-30 13:24 | disposition home or self-care (01) | DRG 309 ==
LOC: ED 02:55 → CCU 06:44 → MS 04-29 19:15
PROVIDERS: Emergency Medicine; Student in an Organized Health Care Education/Training Program; ADMIT Family Medicine; ATTEND Family Medicine
DX: I48.91 Unspecified atrial fibrillation (principal); E87.1 Hypo-osmolality and hyponatremia; I50.20 Unspecified systolic (congestive) heart failure; I11.0 Hypertensive heart disease with heart failure; J45.909 Unspecified asthma, uncomplicated; I44.7 Left bundle-branch block, unspecified; E03.9 Hypothyroidism, unspecified; G25.81 Restless legs syndrome; Z86.73 Personal history of transient ischemic attack (TIA), and cerebral infarction without residual deficits; Z96.653 Presence of artificial knee joint, bilateral; Z79.899 Other long term (current) drug therapy; Z79.82 Long term (current) use of aspirin; R73.03 Prediabetes
CPT/HCPCS: 36415; 71045; 80048; 80053; 81001; 83036; 83605; 83735; 83880; 84100; 84443; 84484; 85025; 85610; 87040; 93005; 93010; 93306; 94667; 94668; 94799; 96365; 96375; 97110; 97116; 97161; 97165; 97530; 97535; 99285-25; A9270; J0696; J1815; J1940; J2405; J3475

== ENCOUNTER 2024-05-21 14:52 | Emergency (ER) | payer OTHER, MEDICARE ==
[~2024-05-21] VITALS: Ht 154.9 cm; Wt 88.0 kg
[~2024-05-21 14:52] MED LIST changes: +CARDIZEM CD240 MG PO; +CELECOXIB100 MG PO; +CILOSTAZOL100 MG PO; +ELIQUIS5 MG PO; +METOPROLOL TART25 MG PO; +POTASSIUM CHLO20 ME1 PO; +PRADAXA150 MG PO; +SOAANZ40 MG PO; +VITAMIN B121000 MCG PO; +VITAMIN D350 MC5 PO
--- OUTSIDE RECORDS SUMMARY | 2024-05-21 14:59 | XMS ---
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 Kaylee has no Care Guidelines for this patient. Kae V[facility] (12 MO.) [facility] T[facility] NOTE: Visits indicate total known visits. ED/[facility] VISIT TRACKING (12 MO.) 05/21/2024 14:52 [facility] [place] [facility] Emergency COMPLAINT: - KNEE PAIN 04/26/2024 02:55 [facility] [place] TYPE: Emergency COMPLAINT: - POSS PNEUMONIA INPATIENT VISIT TRACKING (12 MO.) 04/26/2024 06:44 [facility] [place] TYPE: Medical Surgical COMPLAINT: - ATRIAL FIBRILLATION DIAGNOSES: - Hypertensive heart disease with heart failure - Hypertensive heart disease with heart failure - Hypo-osmolality and hyponatremia - Hypo-osmolality and hyponatremia - Hypothyroidism, unspecified - Hypothyroidism, unspecified - Left bundle-branch block, unspecified - Left bundle-branch block, unspecified - retirement (current) use of aspirin - retirement (current) use of aspirin - Other halfway (current) drug therapy - Other intermodal customer service (current) drug therapy - Personal history of transient ischemic attack (TIA), and cerebral infarction without residual deficits - Personal history of transient ischemic attack (TIA), and cerebral infarction without residual deficits - Prediabetes - Prediabetes - Presence of artificial knee joint, bilateral - Presence of artificial knee joint, bilateral - Restless legs syndrome - Restless legs syndrome - Unspecified asthma, uncomplicated - Unspecified asthma, uncomplicated - Unspecified atrial fibrillation - Unspecified systolic (congestive) heart failure - Unspecified systolic (congestive) heart failure [email or web address]
[2024-05-21] MEDS ORDERED: HYDROCODONE/ACETA 5/325 TAB PO ONE (20:30)
[2024-05-22] MEDS ORDERED: POTASSIUM CHLORIDE 10 MEQ TABCR PO ONE (07:00)
[2024-05-22] MEDS ORDERED: HYDROCODONE/APAP 10/325 1 TAB PO ONE (08:00)
[2024-05-22] MEDS ORDERED: TORSEMIDE20 MG PO (10:06)
[2024-05-22] MEDS ORDERED: HYDROCODON-ACE1 EAC8 PO (11:43)
[2024-05-22 12:38] VITALS: BP 96/67
== END 2024-05-22 12:38 ==
LOC: ED 14:52
DX: S72.491A Other fracture of lower end of right femur, initial encounter for closed fracture (principal); W01.0XXA Fall on same level from slipping, tripping and stumbling without subsequent striking against object, initial encounter; E03.9 Hypothyroidism, unspecified; Z79.899 Other long term (current) drug therapy
CPT/HCPCS: 73560; 73700; 99285; A9270

== ENCOUNTER 2024-08-31 05:20 | Inpatient (IN) | payer MEDICARE, OTHER ==
[2024-08-31] VITALS (14 sets, daily range): BP systolic 84–138; BP diastolic 51–92
[~2024-08-31] VITALS: Ht 154.9 cm; Wt 90.9 kg
[~2024-08-31 05:20] MED LIST changes: +HYDROCODON-ACE1 EAC8 PO; +PROAIR DIGIHAL90 MCG INH; -PROAIR HFA8.5 GM INH; +TORSEMIDE20 MG PO
[2024-08-31] MEDS ORDERED: AMIODARONE HCL 150 MG/3 ML VIAL IV ONE (05:30)
[2024-08-31 05:38] LABS: BASOPHILS 0.2 % (0.1-1.2); EOSINOPHILS 0.4 % (0.7-5.8); HEMATOCRIT 35.8 % (34.1-44.9); LYMPHOCYTES 10.5 % (19.3-51.7); MCH 30.8 PG (25.6-32.2); MCHC 33.5 g/dL (32.2-35.5); MCV 91.8 fL (79.4-94.8); MONOCYTES 9.4 % (4.7-12.5); NEUTROPHILS 79.3 % (34.0-71.1); PLATELET COUNT 142 K/uL (182-369)
[2024-08-31] MEDS ORDERED: AMIODARONE/DEXTROSE 200 ML IV ONE ×2 (05:45→11:33)
[2024-08-31] MEDS ORDERED: ondansetron HCL 4 MG/2 ML VIAL IV ONE (05:45)
[2024-08-31] MEDS ORDERED: CEFTRIAXONE SODIUM 2 GM in SODIUM CHLORIDE 0.9% 100 ML IV ONE (06:00)
[2024-08-31] MEDS ORDERED: LIDOCAINE 2% VISCOUS 6 ML SYR TOP ONE (06:00)
[2024-08-31 06:01] LABS: ALBUMIN 4.1 g/dL (3.4-5.0); ALBUMIN/GLOBULIN RATIO 1.21 (1.1-2.4); ANION GAP 12.8 (7-21); BILIRUBIN, TOTAL 1.1 mg/dL (0.2-1.0); BUN/CREATININE RATIO 17.56 (6.0-28.6); CALCIUM 9.1 mg/dL (8.5-10.1); CREATININE, SERUM 0.74 mg/dL (0.55-1.02); MAGNESIUM 1.8 mg/dL (1.8-2.4); POTASSIUM 3.8 mmol/L (3.5-5.1); PROTEIN, TOTAL 7.5 g/dL (6.4-8.2)
[2024-08-31] MEDS ORDERED: ondansetron HCL 4 MG/2 ML VIAL IV PRN ×2 (06:15→11:15)
[2024-08-31] MEDS ORDERED: ACETAMINOPHEN 325 MG TAB PO PRN (06:15)
[2024-08-31 06:25] LABS: LACTIC ACID, BLOOD 1.6 mmol/L (0.4-2.0)
[2024-08-31] MEDS ORDERED: ALBUMIN HUMAN 25% 100 ML BTL IV ONE (08:30)
[2024-08-31] MEDS ORDERED: AZITHROMYCIN 250 MG TAB PO SCH (09:00)
[2024-08-31] MEDS ORDERED: POLYETHYLENE GLYCOL 3350 1 PACKET PO SCH (09:00)
[2024-08-31 09:38] LABS: TSH, 3RD GENERATION 5.858 uIU/mL (0.358-3.740)
[2024-08-31] MEDS ORDERED: HYDROCODONE/ACETA 5/325 TAB PO PRN (10:00)
[2024-08-31 10:35] LABS: BILIRUBIN, URINE NEGATIVE (negative); BLOOD/HGB, URINE SMALL (Negative); KETONE, URINE NEGATIVE (Negative); LEUK ESTERASE, URINE NEGATIVE (negative); NITRITE, URINE NEGATIVE (negative)
[2024-08-31 10:42] LABS: BACTERIA, URINE RARE /hpf (negative); CASTS, URINE NONE SEEN \\lpf; COLLECTION TYPE, URINE CLEAN CATCH; CRYSTALS, URINE NONE SEEN (0-1+); EPITHELIAL CELLS, URINE SQUAMOUS 3+ /lpf (0-1+); REFLEX CULTURE, URINE No (No); WHITE BLOOD CELLS, URINE 0-1 /HPF (0-5)
[2024-08-31] MEDS ORDERED: THYROID 60 MG TAB PO SCH (11:04)
[2024-08-31] MEDS ORDERED: DEXTROSE 5% 1,000 ML IV PRN (11:15)
[2024-08-31] MEDS ORDERED: DEXTROSE 50% 50 ML SYR IV PRN ×2 (11:15)
[2024-08-31] MEDS ORDERED: GLUCAGON,HUMAN RECOMBINANT 1 MG/ML VIAL SUB-Q PRN (11:15)
[2024-08-31] MEDS ORDERED: IBLOOD GLUCOSE TEST STRIP 1 EA TEST XX PRN (11:15)
[2024-08-31] MEDS ORDERED: PANTOPRAZOLE SODIUM 40 MG TABEC PO SCH (11:18)
[2024-08-31] MEDS ORDERED: DULOXETINE HCL 30 MG CAP PO SCH (11:27)
[2024-08-31] MEDS ORDERED: SENNOSIDES/DOCUSATE 1 EA TAB PO PRN (11:30)
[2024-08-31] MEDS ORDERED: POLYETHYLENE GLYCOL 3350 1 PACKET PO PRN (11:30)
[2024-08-31] MEDS ORDERED: IBLOOD GLUCOSE TEST STRIP 1 EA TEST VI SCH (12:00)
[2024-08-31] MEDS ORDERED: PHARMACY RENAL DOSE ADJUSTMENT 1 DOSE MISC PO SCH (12:00)
[2024-08-31] MEDS ORDERED: INSULIN LISPRO 100 UNIT/ML ML SUB-Q SCH (12:00)
--- NOTE | 2024-08-31 13:06 | EKG ---
[facility] [address] [facility] [place], [place] [address] Signed Atrial fibrillation with rapid ventricular response with premature ventricular or aberrantly conducted complexes Significant motion artifact Left axis deviation Left bundle branch block Abnormal ECG When compared with ECG of 26-APR-2024 03:08, QRS axis shifted left Confirmed by Stephanie Taylor DO ([id number]) on 08/31/2024 1:06:00 PM Electronically Signed By: STEPHANIE TAYLOR DO 08/31/24 1306 PATIENT NAME: KATHY SMITH Electrocardiogram DATE OF : 45 PHYSICIAN: STEPHANIE TAYLOR DO REPORT #: [id number] REPORT IS CONFIDENTIAL AND NOT TO BE RELEASED WITHOUT AUTHORIZATION
--- NOTE | 2024-08-31 13:06 | EKG ---
[facility] [address] [facility] [place], [place] [address] Signed Atrial fibrillation Left bundle branch block Abnormal ECG When compared with ECG of 31-AUG-2024 05:19, (Unconfirmed) No significant change was found Confirmed by Stephanie Taylor DO ([id number]) on 08/31/2024 1:06:27 PM Electronically Signed By: STEPHANIE TAYLOR DO 08/31/24 1306 PATIENT NAME: KATHY SMITH Electrocardiogram DATE OF : 45 PHYSICIAN: STEPHANIE TAYLOR DO REPORT #: [id number] REPORT IS CONFIDENTIAL AND NOT TO BE RELEASED WITHOUT AUTHORIZATION
[2024-08-31] MEDS ORDERED: POTASSIUM CHLORIDE 10 MEQ TABCR PO ONE (16:30)
[2024-08-31] MEDS ORDERED: dilTIAZem HCL 240 MG CAPCR PO ONE (16:30)
[2024-08-31] MEDS ORDERED: FUROSEMIDE 40 MG/4 ML VIAL IV ONE (16:30)
[2024-08-31] MEDS ORDERED: FAMOTIDINE 20 MG/ 2 ML VIAL IV ONE (18:00)
[2024-08-31] MEDS ORDERED: CARBIDOPA-LEVO1 EACH PO (18:10)
[2024-08-31] MEDS ORDERED: PANTOPRAZOLE SO20 MG PO (18:11)
[2024-08-31] MEDS ORDERED: POTASSIUM CHLO20 ME1 PO (18:15)
[2024-08-31] MEDS ORDERED: MELATONIN 3 MG TAB PO PRN (21:00)
[2024-08-31] MEDS ORDERED: CELECOXIB 100 MG CAP PO SCH (21:00)
[2024-08-31] MEDS ORDERED: LEVODOPA/CARBIDOPA 25/100 1 EA TAB PO SCH (21:00)
[2024-08-31] MEDS ORDERED: AMIODARONE HCL 180 MG in DEXTROSE 5% 96.4 ML IV ONE (23:33)
[2024-09-01] VITALS (18 sets, daily range): BP systolic 93–122; BP diastolic 53–93
[2024-09-01 02:18] LABS: TRIIODOTHYRONINE,FREE FREE T3 1.9 pg/mL (2.5-4.3)
[2024-09-01] MEDS ORDERED: ACETAMINOPHEN 500 MG TAB PO PRN (03:00)
[2024-09-01 05:25] LABS: BASOPHILS 0.3 % (0.1-1.2); EOSINOPHILS 2.4 % (0.7-5.8); HEMATOCRIT 31.3 % (34.1-44.9); HEMOGLOBIN 10.3 g/dL (11.2-15.7); LYMPHOCYTES 23.4 % (19.3-51.7); MCH 30.2 PG (25.6-32.2); MCHC 32.9 g/dL (32.2-35.5); MCV 91.8 fL (79.4-94.8); MONOCYTES 12.7 % (4.7-12.5); NEUTROPHILS 61.2 % (34.0-71.1); PLATELET COUNT 124 K/uL (182-369); RBC 3.41 M/uL (3.93-5.22)
[2024-09-01 05:41] LABS: ALBUMIN/GLOBULIN RATIO 1.43 (1.1-2.4); ANION GAP 10.1 (7-21); BUN/CREATININE RATIO 18.29 (6.0-28.6); CALCIUM 8.9 mg/dL (8.5-10.1); CREATININE, SERUM 0.82 mg/dL (0.55-1.02); MAGNESIUM 1.9 mg/dL (1.8-2.4); POTASSIUM 4.1 mmol/L (3.5-5.1); PROTEIN, TOTAL 6.8 g/dL (6.4-8.2)
[2024-09-01] MEDS ORDERED: CEFTRIAXONE SODIUM 2 GM in SODIUM CHLORIDE 0.9% 100 ML IV SCH (09:00)
[2024-09-01] MEDS ORDERED: CYANOCOBALAMIN 1,000 MCG TAB PO SCH (09:00)
[2024-09-01] MEDS ORDERED: dilTIAZem HCL 240 MG CAPCR PO SCH ×2 (09:00)
[2024-09-01] MEDS ORDERED: METOPROLOL TARTRATE 25 MG TAB PO SCH (10:30)
[2024-09-01] MEDS ORDERED: SODIUM CHLORIDE 1 GM TAB PO ONE (10:45)
[2024-09-01] MEDS ORDERED: MAGNESIUM CITRATE 300 ML BTL PO ONE (10:45)
[2024-09-01] MEDS ORDERED: bisacodyL 10 MG SUPP PR ONE (13:15)
[2024-09-01] MEDS ORDERED: hydrOXYzine pamoate 25 MG CAP PO PRN (13:15)
[2024-09-01] MEDS ORDERED: levalbuterol HCL 1.25 MG/0.5 ML VIAL INH PRN (20:15)
[2024-09-01] MEDS ORDERED: levalbuterol HCL 1.25 MG/0.5 ML VIAL ONE (20:22)
[2024-09-01] MEDS ORDERED: LORazepam 2 MG/ML VIAL IV PRN (20:30)
[2024-09-01] MEDS ORDERED: LORazepam 0.5 MG TAB PO PRN (20:30)
[2024-09-01] MEDS ORDERED: ALBUTEROL 1 PUFF INH INH PRN (21:00)
[2024-09-01] MEDS ORDERED: LEVODOPA/CARBIDOPA 10/100 1 EA TAB PO SCH (21:00)
[2024-09-02] VITALS (18 sets, daily range): BP systolic 88–133; BP diastolic 56–91
[2024-09-02 05:37] LABS: BASOPHILS 0.3 % (0.1-1.2); EOSINOPHILS 2.3 % (0.7-5.8); HEMATOCRIT 29.8 % (34.1-44.9); HEMOGLOBIN 9.8 g/dL (11.2-15.7); LYMPHOCYTES 20.3 % (19.3-51.7); MCHC 32.9 g/dL (32.2-35.5); MCV 91.1 fL (79.4-94.8); MONOCYTES 15.1 % (4.7-12.5); NEUTROPHILS 61.7 % (34.0-71.1); PLATELET COUNT 150 K/uL (182-369); RBC 3.27 M/uL (3.93-5.22)
[2024-09-02 05:49] LABS: ANION GAP 8.5 (7-21); BUN/CREATININE RATIO 24.67 (6.0-28.6); CALCIUM 8.8 mg/dL (8.5-10.1); CREATININE, SERUM 0.77 mg/dL (0.55-1.02); MAGNESIUM 2.2 mg/dL (1.8-2.4); POTASSIUM 4.5 mmol/L (3.5-5.1)
[2024-09-02] MEDS ORDERED: THYROID PORK 30 MG PO SCH (06:00)
[2024-09-02] MEDS ORDERED: ALBUTEROL SULFATE 0.083% 3 ML VIAL INH PRN (07:15)
[2024-09-02] MEDS ORDERED: METOPROLOL TARTRATE 25 MG TAB PO SCH (09:15)
[2024-09-02] MEDS ORDERED: LIDOCAINE HCL 4% 1 EACH PATCH TD SCH (09:15)
[2024-09-02] MEDS ORDERED: ACETAMINOPHEN 325 MG TAB PO PRN (09:30)
[2024-09-02] MEDS ORDERED: OXYCODONE HCL 5 MG TAB PO PRN (09:30)
[2024-09-02] MEDS ORDERED: METOPROLOL TARTRATE 50 MG TAB PO ONE (20:45)
[2024-09-02] MEDS ORDERED: METOPROLOL TARTRATE 50 MG TAB PO SCH (21:00)
[2024-09-02] MEDS ORDERED: MELATONIN 3 MG TAB PO SCH (21:00)
[2024-09-02] MEDS ORDERED: LIDOCAINE PATCH REMOVAL 1 EA TD SCH (21:00)
[2024-09-02] MEDS ORDERED: SENNOSIDES 1 TAB PO SCH (21:00)
[2024-09-03] VITALS (10 sets, daily range): BP systolic 93–122; BP diastolic 59–103
[2024-09-03 05:49] LABS: BASOPHILS 0.7 % (0.1-1.2); EOSINOPHILS 4.4 % (0.7-5.8); HEMATOCRIT 32.6 % (34.1-44.9); HEMOGLOBIN 10.8 g/dL (11.2-15.7); LYMPHOCYTES 28.1 % (19.3-51.7); MCH 30.3 PG (25.6-32.2); MCHC 33.1 g/dL (32.2-35.5); MCV 91.3 fL (79.4-94.8); MONOCYTES 13.7 % (4.7-12.5); NEUTROPHILS 52.7 % (34.0-71.1); PLATELET COUNT 152 K/uL (182-369); RBC 3.57 M/uL (3.93-5.22)
[2024-09-03 05:59] LABS: ANION GAP 8.6 (7-21); BUN/CREATININE RATIO 24.24 (6.0-28.6); CALCIUM 8.8 mg/dL (8.5-10.1); CREATININE, SERUM 0.66 mg/dL (0.55-1.02); MAGNESIUM 2.1 mg/dL (1.8-2.4); POTASSIUM 4.6 mmol/L (3.5-5.1)
[2024-09-03] MEDS ORDERED: METOPROLOL TARTRATE 50 MG TAB PO ONE (10:00)
[2024-09-03] MEDS ORDERED: LIDOCAINE & ANTACID 35 ML BTL PO ONE (10:45)
--- NOTE | 2024-09-03 12:56 | EKG ---
[facility] [address] [facility] [place] [address] Signed Atrial fibrillation with rapid ventricular response Left bundle branch block Abnormal ECG When compared with ECG of 31-AUG-2024 05:48, T wave inversion less evident in Lateral leads Confirmed by Dominique Aguilera MD ([id number]) on 09/03/2024 12:55:59 PM Electronically Signed By: DOMINIQUE AGUILERA MD 09/03/24 1256 PATIENT NAME: KATHY SMITH Electrocardiogram DATE OF : 45 PHYSICIAN: DOMINIQUE AGUILERA MD REPORT #: [id number] REPORT IS CONFIDENTIAL AND NOT TO BE RELEASED WITHOUT AUTHORIZATION
--- NOTE | 2024-09-03 12:57 | EKG ---
[facility] [address] [facility] [place] [address] Signed Atrial fibrillation Left bundle branch block Abnormal ECG When compared with ECG of 01-SEP-2024 11:26, (Unconfirmed) T wave amplitude has increased in Lateral leads QT has shortened Confirmed by Dominique Aguilera MD ([id number]) on 09/03/2024 12:56:48 PM Electronically Signed By: DOMINIQUE AGUILERA MD 09/03/24 1257 PATIENT NAME: KATHY SMITH Electrocardiogram DATE OF : 45 PHYSICIAN: DOMINIQUE AGUILERA MD REPORT #: [id number] REPORT IS CONFIDENTIAL AND NOT TO BE RELEASED WITHOUT AUTHORIZATION
[2024-09-03] MEDS ORDERED: METOPROLOL TARTRATE 100 MG TAB PO SCH (21:00)
[2024-09-04] VITALS (10 sets, daily range): BP systolic 110–120; BP diastolic 65–89
[2024-09-04 05:25] LABS: BASOPHILS 0.6 % (0.1-1.2); EOSINOPHILS 3.1 % (0.7-5.8); HEMATOCRIT 35.2 % (34.1-44.9); HEMOGLOBIN 11.5 g/dL (11.2-15.7); MCHC 32.7 g/dL (32.2-35.5); MCV 91.9 fL (79.4-94.8); PLATELET COUNT 168 K/uL (182-369); RBC 3.83 M/uL (3.93-5.22)
[2024-09-04 05:36] LABS: ANION GAP 10.6 (7-21); BUN/CREATININE RATIO 20.28 (6.0-28.6); CALCIUM 8.7 mg/dL (8.5-10.1); CREATININE, SERUM 0.69 mg/dL (0.55-1.02); POTASSIUM 4.6 mmol/L (3.5-5.1)
[2024-09-04] MEDS ORDERED: FUROSEMIDE 40 MG/4 ML VIAL IV ONE (08:15)
[2024-09-04] MEDS ORDERED: METOPROLOL SUCCINATE 100 MG TABCR PO SCH (09:00)
[2024-09-04 15:01] LABS: URINE OSMOLALITY 214 mOsm/kg (50-800)
[2024-09-05] VITALS (13 sets, daily range): BP systolic 105–122; BP diastolic 58–102
[2024-09-05 05:25] LABS: BASOPHILS 0.6 % (0.1-1.2); EOSINOPHILS 3.9 % (0.7-5.8); HEMATOCRIT 35.5 % (34.1-44.9); LYMPHOCYTES 26.7 % (19.3-51.7); MCH 30.3 PG (25.6-32.2); MCHC 33.8 g/dL (32.2-35.5); MCV 89.6 fL (79.4-94.8); NEUTROPHILS 53.5 % (34.0-71.1); PLATELET COUNT 182 K/uL (182-369); RBC 3.96 M/uL (3.93-5.22)
[2024-09-05 05:39] LABS: ANION GAP 11.7 (7-21); BUN/CREATININE RATIO 19.44 (6.0-28.6); CALCIUM 8.5 mg/dL (8.5-10.1); CREATININE, SERUM 0.72 mg/dL (0.55-1.02); MAGNESIUM 1.9 mg/dL (1.8-2.4); POTASSIUM 4.7 mmol/L (3.5-5.1)
[2024-09-05] MEDS ORDERED: DIGOXIN 125 MCG TAB PO SCH (09:00)
[2024-09-05] MEDS ORDERED: FUROSEMIDE 100 MG/10 ML VIAL IV ONE (09:00)
[2024-09-05] MEDS ORDERED: MICONAZOLE NITRATE 1 EA BTL TOP SCH (09:13)
[2024-09-05] MEDS ORDERED: POLYETHYLENE GLYCOL 3350 1 PACKET PO SCH (09:14)
[2024-09-05] MEDS ORDERED: SENNOSIDES/DOCUSATE 1 EA TAB PO SCH (09:14)
[2024-09-06] VITALS (11 sets, daily range): BP systolic 88–115; BP diastolic 51–84
[2024-09-06 05:19] LABS: BASOPHILS 0.6 % (0.1-1.2); EOSINOPHILS 3.6 % (0.7-5.8); HEMATOCRIT 35.8 % (34.1-44.9); HEMOGLOBIN 11.9 g/dL (11.2-15.7); LYMPHOCYTES 23.6 % (19.3-51.7); MCH 30.4 PG (25.6-32.2); MCHC 33.2 g/dL (32.2-35.5); MCV 91.3 fL (79.4-94.8); MONOCYTES 15.5 % (4.7-12.5); NEUTROPHILS 56.4 % (34.0-71.1); PLATELET COUNT 185 K/uL (182-369); RBC 3.92 M/uL (3.93-5.22)
[2024-09-06 05:31] LABS: ANION GAP 10.1 (7-21); CALCIUM 8.8 mg/dL (8.5-10.1); CREATININE, SERUM 0.8 mg/dL (0.55-1.02); MAGNESIUM 1.8 mg/dL (1.8-2.4); POTASSIUM 4.1 mmol/L (3.5-5.1)
[2024-09-06] MEDS ORDERED: MAGNESIUM CHLORIDE 64 MG TABCR PO ONE (08:30)
[2024-09-06 08:37] LABS: CORTISOL,SERUM 12.4 ug/dL (())
[2024-09-06 10:22] LABS: ANION GAP 8.2 (7-21); BUN/CREATININE RATIO 14.94 (6.0-28.6); CALCIUM 9.2 mg/dL (8.5-10.1); CREATININE, SERUM 0.87 mg/dL (0.55-1.02); POTASSIUM 4.2 mmol/L (3.5-5.1)
[2024-09-06] MEDS ORDERED: hydrOXYzine pamoate 25 MG CAP PO PRN (15:15)
[2024-09-06 15:18] LABS: ANION GAP 7.7 (7-21); BUN/CREATININE RATIO 16.47 (6.0-28.6); CALCIUM 8.9 mg/dL (8.5-10.1); CREATININE, SERUM 0.85 mg/dL (0.55-1.02); POTASSIUM 4.7 mmol/L (3.5-5.1)
[2024-09-06 18:52] LABS: ANION GAP 11.6 (7-21); BUN/CREATININE RATIO 16.25 (6.0-28.6); CALCIUM 8.9 mg/dL (8.5-10.1); CREATININE, SERUM 0.8 mg/dL (0.55-1.02); POTASSIUM 4.6 mmol/L (3.5-5.1)
[2024-09-06 22:48] LABS: ANION GAP 10.5 (7-21); BUN/CREATININE RATIO 19.23 (6.0-28.6); CALCIUM 8.9 mg/dL (8.5-10.1); CREATININE, SERUM 0.78 mg/dL (0.55-1.02); POTASSIUM 4.5 mmol/L (3.5-5.1)
[2024-09-07] VITALS (9 sets, daily range): BP systolic 101–116; BP diastolic 66–98
[2024-09-07 05:22] LABS: BASOPHILS 0.3 % (0.1-1.2); EOSINOPHILS 3.5 % (0.7-5.8); HEMATOCRIT 35.1 % (34.1-44.9); HEMOGLOBIN 11.9 g/dL (11.2-15.7); LYMPHOCYTES 29.6 % (19.3-51.7); MCH 30.5 PG (25.6-32.2); MCHC 33.9 g/dL (32.2-35.5); MONOCYTES 13.9 % (4.7-12.5); NEUTROPHILS 52.4 % (34.0-71.1); PLATELET COUNT 170 K/uL (182-369)
[2024-09-07 05:39] LABS: ALBUMIN 3.5 g/dL (3.4-5.0); ALBUMIN/GLOBULIN RATIO 1.21 (1.1-2.4); ANION GAP 8.4 (7-21); BILIRUBIN, TOTAL 0.7 mg/dL (0.2-1.0); BUN/CREATININE RATIO 13.41 (6.0-28.6); CALCIUM 8.7 mg/dL (8.5-10.1); CREATININE, SERUM 0.82 mg/dL (0.55-1.02); POTASSIUM 4.4 mmol/L (3.5-5.1); PROTEIN, TOTAL 6.4 g/dL (6.4-8.2)
[2024-09-07] MEDS ORDERED: METOPROLOL SUCCINATE 100 MG TABCR PO SCH (14:41)
[2024-09-07] MEDS ORDERED: POLYETHYLENE GLYCOL 3350 1 PACKET PO PRN (15:08)
[2024-09-07] MEDS ORDERED: SENNOSIDES/DOCUSATE 1 EA TAB PO PRN (15:08)
[2024-09-07 15:48] LABS: ANION GAP 9.3 (7-21); BUN/CREATININE RATIO 12.98 (6.0-28.6); CALCIUM 8.8 mg/dL (8.5-10.1); CREATININE, SERUM 0.77 mg/dL (0.55-1.02); POTASSIUM 4.3 mmol/L (3.5-5.1)
[2024-09-08 00:57] VITALS: BP 106/73
[2024-09-08 05:18] VITALS: BP 120/87
[2024-09-08 05:24] LABS: BASOPHILS 0.7 % (0.1-1.2); EOSINOPHILS 3.9 % (0.7-5.8); HEMOGLOBIN 11.3 g/dL (11.2-15.7); LYMPHOCYTES 32.3 % (19.3-51.7); MCH 30.3 PG (25.6-32.2); MCHC 32.3 g/dL (32.2-35.5); MCV 93.8 fL (79.4-94.8); MONOCYTES 12.9 % (4.7-12.5); NEUTROPHILS 49.8 % (34.0-71.1); PLATELET COUNT 160 K/uL (182-369); RBC 3.73 M/uL (3.93-5.22)
[2024-09-08 05:33] VITALS: BP 120/87
[2024-09-08 05:39] LABS: ALBUMIN 3.4 g/dL (3.4-5.0); ALBUMIN/GLOBULIN RATIO 1.26 (1.1-2.4); ANION GAP 11.2 (7-21); BILIRUBIN, TOTAL 0.8 mg/dL (0.2-1.0); BUN/CREATININE RATIO 10.12 (6.0-28.6); CALCIUM 8.9 mg/dL (8.5-10.1); CREATININE, SERUM 0.79 mg/dL (0.55-1.02); MAGNESIUM 2.1 mg/dL (1.8-2.4); POTASSIUM 4.2 mmol/L (3.5-5.1); PROTEIN, TOTAL 6.1 g/dL (6.4-8.2)
[2024-09-08 09:45] VITALS: BP 106/63
[2024-09-08 10:00] VITALS: BP 106/63
[2024-09-08] MEDS ORDERED: DIGITEK125 MCG PO (11:56)
[2024-09-08] MEDS ORDERED: METOPROLOL SUC100 MG PO (11:56)
[2024-09-08] MEDS ORDERED: OXYCODONE HCL5 MG PO (11:58)
[2024-09-08] MEDS ORDERED: MAGOX 400400 MG PO (12:28)
[2024-09-08 13:22] VITALS: BP 116/75
[2024-09-08] MEDS ORDERED: PRADAXA150 MG PO (15:42)
== END 2024-09-08 13:27 | disposition home or self-care (01) | DRG 193 ==
LOC: ED 05:20 → CCU 05:21 → MS 11:19 → CCU 11:19 → MS 09-03 18:40
PROVIDERS: Internal Medicine; Student in an Organized Health Care Education/Training Program; ADMIT Student in an Organized Health Care Education/Training Program; ATTEND Family Medicine
DX: J18.9 Pneumonia, unspecified organism (principal); I50.23 Acute on chronic systolic (congestive) heart failure; J96.01 Acute respiratory failure with hypoxia; E87.1 Hypo-osmolality and hyponatremia; I48.91 Unspecified atrial fibrillation; E03.8 Other specified hypothyroidism; K59.00 Constipation, unspecified; G25.81 Restless legs syndrome; G89.29 Other chronic pain; E55.9 Vitamin D deficiency, unspecified; F39 Unspecified mood [affective] disorder; G47.00 Insomnia, unspecified; K21.9 Gastro-esophageal reflux disease without esophagitis; E53.8 Deficiency of other specified B group vitamins; I44.7 Left bundle-branch block, unspecified; I25.10 Atherosclerotic heart disease of native coronary artery without angina pectoris; J44.9 Chronic obstructive pulmonary disease, unspecified; I11.0 Hypertensive heart disease with heart failure; Z86.73 Personal history of transient ischemic attack (TIA), and cerebral infarction without residual deficits; Z79.1 Long term (current) use of non-steroidal anti-inflammatories (NSAID); Z79.890 Hormone replacement therapy; Z95.5 Presence of coronary angioplasty implant and graft
CPT/HCPCS: 36415; 51702; 71045; 71046; 74018; 80048; 80053; 81001; 82533; 83036; 83605; 83735; 83880; 83935; 84300; 84439; 84443; 84481; 84484; 85025; 87040; 87077; 87186; 93005; 93010; 93306; 94640; 94760; 94799; 97162; 97166; 97530; 97535; 99285-25; A9270; G0378; J0282; J0696; J1815; J1938; J2405; P9047; Q0177

== ENCOUNTER 2024-09-08 15:26 | Emergency (ER) | payer MEDICARE, OTHER ==
[~2024-09-08] VITALS: Ht 154.9 cm; Wt 82.0 kg
[~2024-09-08 15:26] MED LIST changes: +CARBIDOPA-LEVO1 EACH PO; +DIGITEK125 MCG PO; +MAGOX 400400 MG PO; +METOPROLOL SUC100 MG PO; +OXYCODONE HCL5 MG PO; +PANTOPRAZOLE SO20 MG PO
--- OUTSIDE RECORDS SUMMARY | 2024-09-08 15:32 | XMS ---
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 Kae VISIT COUNT (12 MO.) 4 MARY Velaz[facility] TOTAL 4 NOTE: Visits indicate total known visits. ED/UCC VISIT TRACKING (12 MO.) 09/08/2024 15:26 [facility] TYPE: Emergency COMPLAINT: - POSS SEIZURE 08/31/2024 05:20 [facility] TYPE: Emergency COMPLAINT: - SOB 05/21/2024 14:52 [facility] TYPE: Emergency COMPLAINT: - KNEE PAIN DIAGNOSES: - Fall on same level from slipping, tripping and stumbling without subsequent striking against object, initial encounter - Hypothyroidism, unspecified - Other fracture of lower end of right femur, initial encounter for closed fracture - Other long-term (current) drug therapy - Pain in right knee 04/26/2024 02:55 [facility] TYPE: Emergency COMPLAINT: - POSS PNEUMONIA INPATIENT VISIT TRACKING (12 MO.) 08/31/2024 11:19 [facility] TYPE: Medical Surgical COMPLAINT: - AFIB RVR/CHF 04/26/2024 06:44 [facility] TYPE: Medical Surgical COMPLAINT: - ATRIAL FIBRILLATION DIAGNOSES: - Hypertensive heart disease with heart failure - Hypertensive heart disease with heart failure - Hypo-osmolality and hyponatremia - Hypo-osmolality and hyponatremia - Hypothyroidism, unspecified - Hypothyroidism, unspecified - Left bundle-branch block, unspecified - Left bundle-branch block, unspecified - care home (current) use of aspirin - automotive vehicle inspector (current) use of aspirin - Other building carpenter helper (current) drug therapy - Other long-term (current) drug therapy - Personal history of [...] failure - Unspecified systolic (congestive) heart failure [email or web address]
[2024-09-08] MEDS ORDERED: PRADAXA150 MG PO (15:42)
[2024-09-08 17:21] LABS: BASOPHILS 0.6 % (0.1-1.2); EOSINOPHILS 1.1 % (0.7-5.8); HEMATOCRIT 35.6 % (34.1-44.9); HEMOGLOBIN 11.6 g/dL (11.2-15.7); LYMPHOCYTES 13.7 % (19.3-51.7); MCH 30.1 PG (25.6-32.2); MCHC 32.6 g/dL (32.2-35.5); MCV 92.5 fL (79.4-94.8); MONOCYTES 9.4 % (4.7-12.5); NEUTROPHILS 74.9 % (34.0-71.1); PLATELET COUNT 160 K/uL (182-369); RBC 3.85 M/uL (3.93-5.22)
[2024-09-08 17:37] LABS: ALBUMIN 3.6 g/dL (3.4-5.0); ALBUMIN/GLOBULIN RATIO 1.29 (1.1-2.4); ANION GAP 11.2 (7-21); BILIRUBIN, TOTAL 0.8 mg/dL (0.2-1.0); BUN/CREATININE RATIO 12.98 (6.0-28.6); CALCIUM 8.7 mg/dL (8.5-10.1); CREATININE, SERUM 0.77 mg/dL (0.55-1.02); POTASSIUM 4.2 mmol/L (3.5-5.1); PROTEIN, TOTAL 6.4 g/dL (6.4-8.2)
[2024-09-08 19:04] VITALS: BP 112/77
--- NOTE | 2024-09-09 19:08 | EKG ---
[facility] [address] [facility] [place] [address] Signed Atrial fibrillation Nonspecific intraventricular block Possible Lateral infarct , age undetermined Abnormal ECG When compared with ECG of 01-SEP-2024 20:11, QRS axis shifted left Confirmed by Stephanie Taylor DO ([id number]) on 09/09/2024 7:08:33 PM Electronically Signed By: STEPHANIE TAYLOR DO 09/09/24 1908 PATIENT NAME: KATHY SMITH Electrocardiogram DATE OF : 45 PHYSICIAN: STEPHANIE TAYLOR DO REPORT #: [id number] REPORT IS CONFIDENTIAL AND NOT TO BE RELEASED WITHOUT AUTHORIZATION
== END 2024-09-08 19:04 | disposition home or self-care (01) ==
LOC: ED 15:26
PROVIDERS: Emergency Medicine
DX: R55 Syncope and collapse (principal); Z79.899 Other long term (current) drug therapy
CPT/HCPCS: 36415; 80053; 83880; 84484; 85025; 93005; 93010; 99284

== ENCOUNTER 2024-11-07 11:36 | Emergency (ER) | payer MEDICARE, OTHER ==
[~2024-11-07] VITALS: Ht 154.9 cm; Wt 74.0 kg
[~2024-11-07 11:36] MED LIST changes: +METOPROLOL TA37.5 MG PO; +METOPROLOL TART50 MG PO
--- OUTSIDE RECORDS SUMMARY | 2024-11-07 11:42 | XMS ---
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 Kae VISIT COUNT (12 MO.) 6 MARY Velazquez TOTAL 6 NOTE: Visits indicate total known visits. ED/UCC VISIT TRACKING (12 MO.) 11/07/2024 11:37 [facility] TYPE: Emergency COMPLAINT: - FALL 11/01/2024 00:46 [facility] TYPE: Emergency COMPLAINT: - HIGH HEART RATE DIAGNOSES: - Dizziness and giddiness - Other pharmacy technician infusion (current) drug therapy - Presence of unspecified artificial knee joint - Unspecified atrial fibrillation 09/08/2024 15:26 [facility] TYPE: Emergency COMPLAINT: - POSS SEIZURE DIAGNOSES: - Other pharmacy technician infusion (current) drug therapy - Syncope and collapse 08/31/2024 05:20 [facility] TYPE: Emergency COMPLAINT: - SOB 05/21/2024 14:52 [facility] TYPE: Emergency COMPLAINT: - KNEE PAIN DIAGNOSES: - Fall on same level from slipping, tripping and stumbling without subsequent striking against object, initial encounter - Hypothyroidism, unspecified - Other fracture of lower end of right femur, initial encounter for closed fracture - Other pharmacy technician infusion (current) drug therapy - Pain in right knee 04/26/2024 02:55 [facility] TYPE: Emergency COMPLAINT: - POSS PNEUMONIA INPATIENT VISIT TRACKING (12 MO.) 08/31/2024 11:19 [facility] TYPE: Medical Surgical COMPLAINT: - AFIB RVR/CHF DIAGNOSES: - Acute on chronic systolic (congestive) heart failure - Acute on chronic systolic (congestive) heart failure - Acute respiratory failure with hypoxia - Acute respiratory failure with hypoxia - Atherosclerotic heart disease of [place] coronary artery without angina pectoris - Atherosclerotic heart disease of [place] coronary artery without angina pectoris - Chronic obstructive pulmonary disease, unspecified - Chronic obstructive pulmonary disease, unspecified - Constipation, unspecified - Constipation, unspecified - Deficiency of other specified B group vitamins - Deficiency of other specified B group vitamins - Gastro-esophageal reflux disease without esophagitis - Gastro-esophageal reflux disease without esophagitis - Hormone replacement therapy - Hormone replacement therapy - Hypertensive heart disease with heart failure - Hypertensive heart disease with heart failure - Hypo-osmolality and hyponatremia - Hypo-osmolality and hyponatremia - Insomnia, unspecified - Insomnia, unspecified - Left bundle-branch block, unspecified - Left bundle-branch block, unspecified - USP (current) use of non-steroidal anti-inflammatories (NSAID) - USP (current) use of non-steroidal anti-inflammatories (NSAID) - Other chronic pain - Other chronic pain - Other specified hypothyroidism - Other specified hypothyroidism - Personal history of transient ischemic attack (TIA), and cerebral infarction without residual deficits - Personal history of transient ischemic attack (TIA), and cerebral infarction without residual deficits - Pneumonia, unspecified organism - Presence of coronary angioplasty implant and graft - Presence of coronary angioplasty implant and graft - Restless legs syndrome - Restless legs syndrome - Unspecified atrial fibrillation - Unspecified atrial fibrillation - Unspecified mood [affective] disorder - Unspecified mood [affective] disorder - Vitamin D deficiency, unspecified - Vitamin D deficiency, unspecified 04/26/2024 06:[address] [facility] TYPE: Medical Surgical COMPLAINT: - ATRIAL FIBRILLATION DIAGNOSES: - Hypertensive heart disease with heart failure - Hypertensive heart disease with heart failure - Hypo-osmolality and hyponatremia - Hypo-osmolality and hyponatremia - Hypothyroidism, unspecified - Hypothyroidism, unspecified - Left bundle-branch block, unspecified - Left bundle-branch block, unspecified - USP (current) use of aspirin - hand washer (current) use of aspirin - Other pharmacy technician infusion (current) drug therapy - Other intermediate (current) drug therapy - Personal history of [...] failure - Unspecified systolic (congestive) heart failure [email or web address]
[2024-11-07 12:06] LABS: BASOPHILS 0.3 % (0.1-1.2); EOSINOPHILS 0.6 % (0.7-5.8); LYMPHOCYTES 18.2 % (19.3-51.7); MCH 30.5 PG (25.6-32.2); MCHC 33.4 g/dL (32.2-35.5); MCV 91.2 fL (79.4-94.8); MONOCYTES 12.3 % (4.7-12.5); NEUTROPHILS 68.3 % (34.0-71.1); RBC 4.53 M/uL (3.93-5.22)
[2024-11-07] MEDS ORDERED: ENTRESTO 24 MG1 EACH (12:27)
[2024-11-07] MEDS ORDERED: DULOXETINE HCL30 MG (12:27)
[2024-11-07] MEDS ORDERED: JARDIANCE10 MG (12:27)
[2024-11-07 12:32] LABS: ALCOHOL, MEDICAL <3 ng/dL (<3); ALT (SGPT) 34 U/L (14-59); AST (SGOT) 23 U/L (15-37); GLOMERULAR FILTRATION RATE,EST 84 mL/min (>60); PROTEIN, TOTAL 8.1 g/dL (6.4-8.2); UREA NITROGEN 14 mg/dL (7-18)
[2024-11-07 12:45] LABS: ABO O; ANTIBODY SCREEN NEGATIVE; RH POSITIVE
[2024-11-07 14:00] VITALS: BP 124/80
--- NOTE | 2024-11-09 13:52 | EKG ---
[facility] [address] [facility] [place] [address] Signed Atrial fibrillation Left axis deviation Left bundle branch block Abnormal ECG When compared with ECG of 08-SEP-2024 15:47, Questionable change in QRS axis Confirmed by Kerry Jack MD () on 11/09/2024 1:52:28 PM Electronically Signed By: KERRY JACK MD 11/09/24 1352 PATIENT NAME: KATHY SMITH Electrocardiogram DATE OF : 45 PHYSICIAN: KERRY JACK MD REPORT #: [id number] REPORT IS CONFIDENTIAL AND NOT TO BE RELEASED WITHOUT AUTHORIZATION
== END 2024-11-07 14:15 | disposition home or self-care (01) ==
LOC: ED 11:36
PROVIDERS: Emergency Medicine
DX: S00.83XA Contusion of other part of head, initial encounter (principal); M25.571 Pain in right ankle and joints of right foot; R55 Syncope and collapse; E03.9 Hypothyroidism, unspecified; I50.20 Unspecified systolic (congestive) heart failure; I48.91 Unspecified atrial fibrillation; I25.10 Atherosclerotic heart disease of native coronary artery without angina pectoris; Z86.73 Personal history of transient ischemic attack (TIA), and cerebral infarction without residual deficits; Z79.890 Hormone replacement therapy; Z79.899 Other long term (current) drug therapy; W18.39XA Other fall on same level, initial encounter
CPT/HCPCS: 36415; 70450; 70486; 71045; 72125; 72170; 73610; 80053; 80307; 83880; 84484; 85025; 86850; 86900; 86901; 93005; 93010; 99284-25; G0480